=== PATIENT | male | born 1990 | race African-American/Black ===

== ENCOUNTER 2024-11-19 03:37 | Emergency (ER) | payer OTHER, MEDICAID ==
[~2024-11-19] VITALS: Ht 165.1 cm; Wt 64.0 kg
[2024-11-19 03:49] VITALS: TEMP 36.7; O2SAT 97
[2024-11-19] MEDS: ACETAMINOPHEN 325MG TABLET PO ONE (04:11)
[2024-11-19] MEDS ORDERED: ACET-2708 MT (04:42)
[2024-11-19 04:55] VITALS: BP 112/66; PULSE 64; RESP 16; O2SAT 99
== END 2024-11-19 04:50 | disposition home or self-care (01) ==
LOC: ER 03:37
DX: S09.90XA Unspecified injury of head, initial encounter (principal); F17.200 Nicotine dependence, unspecified, uncomplicated; F12.90 Cannabis use, unspecified, uncomplicated; V89.2XXA Person injured in unspecified motor-vehicle accident, traffic, initial encounter; Y93.89 Activity, other specified; Y92.89 Other specified places as the place of occurrence of the external cause; Y99.8 Other external cause status
CPT/HCPCS: 99284

== ENCOUNTER 2024-12-03 08:59 | Emergency (ER) | payer MEDICAID, OTHER ==
[~2024-12-03] VITALS: Ht 165.1 cm; Wt 68.0 kg
[~2024-12-03 08:59] MED LIST: ACET-2708 MT
[2024-12-03 09:06] VITALS: O2SAT 97
[2024-12-03 11:49] LABS: CLARITY URINE CLEAR (CLEAR); COLOR URINE YELLOW (YELLOW); GLUCOSE URINE NEGATIVE (NEGATIVE); KETONES URINE NEGATIVE (NEGATIVE); LEUKOCYTE ESTERASE URINE TRACE (NEGATIVE); NITRITE URINE NEGATIVE (NEGATIVE); OCCULT BLOOD URINE NEGATIVE (NEGATIVE); PROTEIN URINE NEGATIVE (NEGATIVE); SPECIFIC GRAVITY URINE 1.013 (1.005-1.030); UROBILINOGEN URINE 0.2 E.U./dL (0.2-1.0)
[2024-12-03 12:07] LABS: BACTERIA URINE FEW; RBC URINE NONE SEEN /hpf (0-2); SQUAMOUS EPITHELIAL CELL URINE FEW /lpf (RARE/1+); YEAST URINE NONE SEEN
[2024-12-03] MEDS ORDERED: DOXY100T2 MT (12:42)
[2024-12-03] MEDS: CEFTRIAXONE SODIUM 500MG VIAL IM ONE (13:04)
[2024-12-03 13:20] VITALS: BP 147/112; PULSE 85; RESP 16; TEMP 36.9; O2SAT 98
== END 2024-12-03 13:28 | disposition home or self-care (01) ==
LOC: ER 08:59
DX: A64 Unspecified sexually transmitted disease (principal); R31.9 Hematuria, unspecified; F12.90 Cannabis use, unspecified, uncomplicated
CPT/HCPCS: 99283; 81003; 96372; J0696